=== PATIENT | male | born 1965 | race Asian ===

== ENCOUNTER 2018-06-19 12:23 | Emergency (ER) | payer OTHER ==
[~2018-06-19] VITALS: Ht 182.9 cm; Wt 108.4 kg
[2018-06-19 12:54] LABS: POTASSIUM 4.5 mmol/L (3.6-5.2)
[2018-06-19 13:17] LABS: PLATELET COUNT 272 K/uL (142-355)
[2018-06-19 13:46] VITALS: BP 155/81; TEMP 97.8
[2018-06-19] MEDS ORDERED: FINGERSTIX (14:29)
[2018-06-19] MEDS ORDERED: LANTUS100 UNIT/M SC (14:30)
[2018-06-19] MEDS ORDERED: PROVERA5 MG PO (14:31)
[2018-06-19] MEDS ORDERED: TAMS0.4C PO (14:31)
[2018-06-19] MEDS ORDERED: LOPRESSOR100 MG PO (14:32)
[2018-06-19] MEDS ORDERED: NIFE60TA5 PO (14:33)
[2018-06-19] MEDS ORDERED: LIPITOR20 MG PO (14:34)
[2018-06-19] MEDS ORDERED: MAGNSUS68 PO (14:37)
[2018-06-19] MEDS ORDERED: ASPIRIN 8181 MG PO (14:39)
[2018-06-19] MEDS ORDERED: CELEXA20 MG PO (14:39)
[2018-06-19] MEDS ORDERED: CLOP75TA2 PO (14:40)
[2018-06-19] MEDS ORDERED: ISOS60TA6 PO (14:51)
[2018-06-19] MEDS ORDERED: OXYB5TAB56 PO (14:52)
[2018-06-19] MEDS ORDERED: BUSPIRONE10 MG PO (14:53)
[2018-06-19] MEDS ORDERED: DIVA250T PO (14:55)
[2018-06-19] MEDS ORDERED: ZIPR20IN IM (14:56)
== END 2018-06-19 13:46 | disposition other institution (70) ==
LOC: ED 12:23
PROVIDERS: Family Medicine
DX: R46.89 Other symptoms and signs involving appearance and behavior (principal); R00.1 Bradycardia, unspecified; Z04.6 Encounter for general psychiatric examination, requested by authority
CPT/HCPCS: 36415; 80053; 85027; 93005; 99285

== ENCOUNTER 2021-03-14 15:07 | Emergency (ER) | payer OTHER ==
[~2021-03-14] VITALS: Ht 182.9 cm; Wt 83.6 kg
[~2021-03-14 15:07] MED LIST: ASPIRIN 8181 MG PO; BUSPIRONE10 MG PO; CELEXA20 MG PO; CLOP75TA2 PO; DIVA250T PO; DIVALPROEX500 MG PO; FINGERSTIX; FOLI1TAB26 PO; ISOS60TA6 PO; LANTUS100 UNIT/M SC; LIPITOR20 MG PO; LOPRESSOR100 MG PO; MAGNSUS68 PO; NIFE60TA5 PO; OXCARBAZEPIN300 MG PO; OXYB5TAB56 PO; PROVERA5 MG PO; TAMS0.4C PO; VITAMIN D50000 UNIT PO; ZIPR20IN IM
[2021-03-14 15:10] VITALS: BP 193/93; TEMP 97.7
== END 2021-03-14 19:40 | disposition home or self-care (01) ==
LOC: ED 15:07
DX: M54.89 Other dorsalgia (principal); W06.XXXA Fall from bed, initial encounter; Y92.128 Other place in nursing home as the place of occurrence of the external cause
CPT/HCPCS: 99282

== ENCOUNTER 2021-09-16 12:04 | Emergency (ER) | payer OTHER ==
[~2021-09-16] VITALS: Ht 182.9 cm; Wt 81.6 kg
[2021-09-16 14:33] VITALS: BP 162/89; TEMP 97.7
== END 2021-09-16 14:33 | disposition home or self-care (01) ==
LOC: ED 12:04
DX: R07.89 Other chest pain (principal); N18.6 End stage renal disease; Z99.2 Dependence on renal dialysis; I10 Essential (primary) hypertension; E11.9 Type 2 diabetes mellitus without complications; Z79.4 Long term (current) use of insulin
CPT/HCPCS: 93005; 99282

== ENCOUNTER 2022-06-07 13:08 | Outpatient (CLI) | payer OTHER ==
[2022-06-07 13:39] LABS: POTASSIUM 4.4 mmol/L (3.6-5.2)
== END 2022-06-07 19:15 | disposition home or self-care (01) ==
LOC: LAB 13:08
PROVIDERS: ATTEND Physician Assistant Medical
DX: I12.9 Hypertensive chronic kidney disease with stage 1 through stage 4 chronic kidney disease, or unspecified chronic kidney disease (principal); N18.4 Chronic kidney disease, stage 4 (severe)
CPT/HCPCS: 80048

== ENCOUNTER 2022-06-11 13:22 | Outpatient (CLI) | payer OTHER ==
[2022-06-11 14:35] LABS: POTASSIUM 5.6 mmol/L (3.6-5.2)
== END 2022-06-11 19:18 | disposition home or self-care (01) ==
LOC: LAB 13:22
PROVIDERS: ATTEND Physician Assistant Medical
DX: N18.6 End stage renal disease (principal)
CPT/HCPCS: 80048